=== PATIENT | male | born 1990 | race African-American/Black ===

== ENCOUNTER 2018-04-05 03:00 | Emergency (ER) | payer OTHER ==
[~2018-04-05] VITALS: Ht 177.8 cm; Wt 66.2 kg
[2018-04-05 03:04] VITALS: Ht 177.8 cm; Wt 66.2 kg
[2018-04-05 04:26] VITALS: BP 133/82
== END 2018-04-05 04:26 | disposition home or self-care (01) ==
LOC: ED 03:00
DX: T78.2XXA Anaphylactic shock, unspecified, initial encounter (principal); Z91.018 Allergy to other foods; Z88.8 Allergy status to other drugs, medicaments and biological substances
CPT/HCPCS: J7512; Q0163